=== PATIENT | female | born 1975 | race Caucasian/White ===

== ENCOUNTER 2016-08-04 10:03 | Emergency (ER) | payer BC ==
--- NOTE | 2016-08-04 10:20 | Emergency Department Record ---
History of Present Illness - General Chief Complaint: Chest Pain Stated Complaint: RECENT CP Time Seen by Provider: 08/04/16 10:12 Source: Patient Mode of Arrival: Ambulatory Limitations: No limitations - History of Present Illness Initial Comments: 41 yo female presents to ED with a CC of chest discomfort this morning associated with nausea symptoms. Patient reports similar symptoms previously, and recently underwent cardiac evaluation in May of this year that was unremarkable. Patient reports a history of a large lymph node removed last fall from the neck region (10 cm), and the patient is currently being evaluated for possible thyroid nodule. Patient denies previous cardiac or pulmonary issues. Patient also reports taking methyphenidate for ADD for the past 6-7 months. Onset/Timin -: Hour(s) Onset: During rest Pain Location: Substernal Pain Radiation: None Consistency: Now resolved Improves With: Nothing Worsens With: Nothing Context: Other Treatments Prior to Arrival: None - Related Data On Oral Contraceptives: No Home Medications Medication Instructions Recorded Confirmed Last Taken Cyanocobalamin (Vitamin B-12) 1,000 mcg IM ASDIR 08/04/16 08/04/16 Unknown [Cyanocobalamin Injection] Levothyroxine Sodium 75 mcg PO DAILY 08/04/16 08/04/16 Unknown Methylphenidate HCl 20 mg PO DAILY 08/04/16 08/04/16 Unknown [Methylphenidate ER] Allergies Allergy/AdvReac Type Severity Reaction Status Date / Time Penicillins Allergy HIVES Verified 08/04/16 10:15 succinylcholine Allergy NEUROTOXICI Verified 08/04/16 10:15 TY Travel Screening - Travel/Exposure Within Last 30 Days Have you traveled within the last 30 days?: No Review of Systems Constitutional: Denies: Chills, Fever, Malaise, Night sweats Eyes: Denies: Eye discharge, Eye pain ENT: Denies: Congestion, Ear pain, Epistaxis Respiratory: Denies: Cough, Dyspnea Cardiovascular: Reports: Chest pain. Denies: Dyspnea on exertion Endocrine: Denies: Fatigue, Heat or cold intolerance Gastrointestinal: Reports: Nausea. Denies: Abdominal pain, Vomiting Genitourinary: Denies: Incontinence, Retention Musculoskeletal: Denies: Arthralgia, Back pain Skin: Denies: Bruising, Change in color Neurological: Denies: Abnormal gait, Confusion, Seizure Psychiatric: Denies: Anxiety Hematological/Lymphatic: Denies: Anemia, Blood Clots Past Medical History - SOCIAL HISTORY Smoking Status: Never smoker Alcohol Use: Rare Drug Use: None - RESPIRATORY Hx Respiratory Disorders: No - CARDIOVASCULAR Hx Cardio Disorders: Yes Hx Chest Pain: Yes - NEURO Hx Neuro Disorders: Yes Hx Headaches: Yes - GI Hx GI Disorders: No - Hx Genitourinary Disorders: No - ENDOCRINE Hx Endocrine Disorders: Yes Hx Thyroid Disease: Yes - MUSCULOSKELETAL Hx Musculoskeletal Disorders: No - PSYCH Hx Psych Problems: No - HEMATOLOGY/ONCOLOGY Hx Hematology/Oncology Disorders: No Family Medical History Any Significant Family History?: Yes Hx Heart Disease: Mother, Grandparents Physical Exam - General General Appearance: Alert, Oriented x3, Cooperative, Mild distress Limitations: No limitations - Head Head exam: Atraumatic, Normocephalic, Normal inspection Head exam detail: negative: Abrasion, Contusion, Murray's sign, General tenderness, Hematoma, Laceration - Eye Eye exam: Normal appearance. negative: Conjunctival injection, Periorbital swelling, Periorbital tenderness, Scleral icterus - ENT Ear exam: negative: Auricular hematoma, Auricular trauma Nasal Exam: negative: Active bleeding, Discharge, Dried blood, Foreign body Mouth exam: negative: Drooling, Laceration, Muffled voice, Tongue elevation - Neck Neck exam: Normal inspection. negative: Meningismus, Tenderness - Respiratory Respiratory exam: Normal lung sounds bilaterally. negative: Rales, Respiratory distress, Rhonchi, Stridor - Cardiovascular Cardiovascular Exam: Regular rate, Normal rhythm, Normal heart sounds - GI/Abdominal GI/Abdominal exam: Soft. negative: Rebound, Rigid, Tenderness - Rectal Rectal exam: Deferred - exam: Deferred - Extremities Extremities exam: Normal inspection. negative: Calf tenderness, Pedal edema, Tenderness - Back Back exam: Reports: Normal inspection. Denies: CVA tenderness (R), CVA tenderness (L) - Neurological Neurological exam: Alert, Normal gait, Oriented X3 - Psychiatric Psychiatric exam: Normal affect, Normal mood - Skin Skin exam: Normal color. negative: Abrasion Type of lesion: negative: abrasion Course Vital Signs 08/04/16 10:07 Temperature 98.1 F Pulse Rate 62 Respiratory 16 Rate Blood Pressure 141/89 Pulse Ox 98 - Reevaluation(s) Reevaluation #1: 08/04/16 10:19 EKG: NSR 69 Normal axis, normal intervals No acute ST-T wave changes 2nd EKG: Sinus Tachycardia 122 Normal axis, normal intervals No acute ST-T wave changes Reevaluation #2: 08/04/16 10:39 While obtaining history for the patient, she would become nauseated, felt a "tingling sensation" over her body, and her pulse would increase from the 60's to the low 100's while at rest. Thyroid studies ordered for further evaluation , patient will likely require transfer for further metabolic/endocrine evaluation (? pheochromocytoma?). Reevaluation #3: 08/04/16 11:14 Records reviewed from [facility]: Echo 05/28/16: Normal CT Brain: No acute process CXR: No acute process Negative cardiac evaluation and syncope evaluation. Reevaluation #4: 08/04/16 11:33 Labs reviewed, TSH 1.47, T3 normal. EKG and Troponin are grossly unremarkable for an acute process. Patient was updated on all results, and in discussing the patient's case, will initiate transfer for further endocrinological evaluation. Reevaluation #5: 08/04/16 11:43 Case was discussed with Dr. Leigh at [facility], will accept transfer for further evaluation. Medical Decision Making - Lab Data Result diagrams: 08/04/16 10:20 08/04/16 10:20 Disposition Disposition: Transfer Clinical Impression: Atypical chest pain, Endocrinopathy Disposition: Acute Care Hospital Transfer Transfer To: [facility] Reason For Transfer: Endocrinology consultation/evaluation Accepting Physician: Lu Time Discussed w/Accepting Physician: 11:44 Condition: (2) Stable Forms: Patient Portal Access Time of Disposition: 11:44
[2016-08-04] MEDS: 0.9 % SODIUM CHLORIDE 1000ML 1,000 ML IV SCH (10:45)
[2016-08-04] MEDS: ONDANSETRON HCL IV 4 MG/2 ML VIAL IVP ONE (10:45)
[2016-08-04] MEDS: ASPIRIN 81 MG CHEWABLE TABLET PO ONE (10:45)
[2016-08-04 10:47] LABS: BASO % 0.6 % (0-6); EOS % 1.3 % (0-6); GRAN % 63.4 % (47-80); HEMATOCRIT 38.9 % (35.0-47.0); HEMOGLOBIN 12.5 gm/dl (11.6-16.0); LYMPH % 28.1 % (16-45); MEAN CELL VOLUME 89.2 fl (81-97); MEAN CORPUSCULAR HEMOGLOBIN 28.7 pg (27-33); MEAN CORPUSCULAR HGB CONC 32.1 g/dl (32-36); MEAN PLATELET VOLUME 9.9 fl (7.4-10.4); MONO % 6.6 % (0-9); PLATELET COUNT 363 K/uL (130-400); RED BLOOD COUNT 4.36 M/uL (3.80-5.40); RED CELL DISTRIBUTION WIDTH 13.4 % (11.5-14.5); WHITE BLOOD COUNT W/O DIFF 5.3 K/uL (4.2-12.2)
[2016-08-04 11:01] LABS: ALB/GLOB RATIO 1.8 (1.1-1.8); ALBUMIN 4.6 gm/dL (3.5-5.0); ALKALINE PHOSPHATASE 78 U/L (38-126); ALT/SGPT 23 U/L (9-52); ANION GAP 6.9 (7-16); AST/SGOT 21 U/L (14-36); BILIRUBIN,TOTAL 0.57 mg/dL (0.2-1.3); BLOOD UREA NITROGEN 10 mg/dL (7-17); CARBON DIOXIDE 25.1 mmol/L (22-30); CREATINE PHOSPHOKINASE 114 U/L (30-135); CREATININE 0.8 mg/dL (0.52-1.04); EST GLOMERULAR FILTRATION RATE > 60 ml/min; GLUCOSE,RANDOM 94 mg/dL (70-110); TOTAL PROTEIN 7.2 gm/dL (6.3-8.2)
[2016-08-04 11:24] LABS: TROPONIN I < 0.012 ng/mL (0.00-0.034)
[2016-08-04 11:31] LABS: THYROID STIMULATING HORMONE 1.47 uIU/ml (0.465-4.68)
== END 2016-08-04 12:13 | disposition short-term general hospital (02) ==
LOC: ER 10:03
DX: R07.89 Other chest pain (principal); E31.9 Polyglandular dysfunction, unspecified; R11.0 Nausea; R20.2 Paresthesia of skin
CPT/HCPCS: 99285 ×2; 96374; 82550; 85025; 84484; 80053; 84439; 84443; 93005; 93010; J2405; J7030